=== PATIENT | male | born 1955 | race American Indian/Alaskan Native ===

== ENCOUNTER 2017-02-15 11:32 | Emergency (ER) | payer SELFPAY ==
--- NOTE | 2017-02-15 12:18 | C.PDOC ---
History Of Present Illness 61 yr old male presents to the ER stating 3 weeks ago he fell off a ladder, landing on his butt and hit the back of his head, since then he has had intermittent headache but has been worse for the past few days. While in the ER , patient continue to have high blood pressure. Patient denies fever, chills, chest pain, SOB, nausea, vomiting, weakness or numbness. - HPI Time Seen by Provider: 02/15/17 11:57 Chief Complaint (Nursing): Trauma History Per: Patient History/Exam Limitations: no limitations Onset/Duration Of Symptoms: Days Past Medical History Reviewed: Historical Data, Nursing Documentation, Vital Signs Vital Signs: Last Vital Signs Temp 99 F 02/15/17 14:15 Pulse 85 02/15/17 14:15 Resp 20 02/15/17 14:15 BP 162/99 H 02/15/17 14:25 Pulse Ox 100 02/15/17 14:52 Surgical History: Hernia Repair Family History: States: No Known Family Hx - Social History Hx Alcohol Use: No Hx Substance Use: Yes (marijuana) - Immunization History Hx Tetanus Toxoid Vaccination: No Hx Influenza Vaccination: No Hx Pneumococcal Vaccination: No Review Of Systems Except As Marked, All Systems Reviewed And Found Negative. Constitutional: Negative for: Fever, Chills Eyes: Positive for: Vision Change (Gradual vision slip box changer the last few years. 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 Negative for: Weakness, Numbness Physical Exam - Physical Exam Appears: Non-toxic, No Acute Distress Skin: Warm, Dry, No Rash Head: Atraumatic, Normacephalic Eye(s): bilateral: Normal Inspection, PERRL, EOMI Oral Mucosa: Moist Neck: Normal, Normal ROM, No Paracervical Tenderness, Supple Chest: Symmetrical, No Tenderness Cardiovascular: Rhythm Regular, No Friction Rub, No Murmur Respiratory: Normal Breath Sounds, No Rales, No Rhonchi, No Stridor, No Wheezing Gastrointestinal/Abdominal: Normal Exam, Soft, No Tenderness Back: Normal Inspection, No CVA Tenderness Extremity: Normal ROM, No Calf Tenderness, No Swelling Neurological/Psych: Oriented x3, Normal Speech, Normal Motor Gait: Steady ED Course And Treatment - Laboratory Results Result Diagrams: 02/15/17 12:40 02/15/17 12:40 O2 Sat by Pulse Oximetry: 100 (RA) Pulse Ox Interpretation: Normal - CT Scan/US CT - Head Other Rad Studies (CT/US): Read By Radiologist, Radiology Report Reviewed CT/US Interpretation: PROCEDURE: CT HEAD WITHOUT CONTRAST. HISTORY: headache , injury, high BP. COMPARISON: None available. TECHNIQUE: Axial computed tomography images were obtained through the head/brain without intravenous contrast. Radiation dose: Total exam DLP = 1222.19 mGy-cm. This CT exam was performed using one or more of the following dose reduction techniques: Automated exposure control, adjustment of the mA and/or kV according to patient size, and/or use of iterative reconstruction technique. FINDINGS: HEMORRHAGE: No acute parenchymal, subarachnoid or extra-axial hemorrhage. BRAIN: Fairly significant diffuse/confluent chronic white matter ischemic changes. There appears to be some extension of these ischemic changes into white matter tracts of both basal ganglia. Several small chronic appearing lacunar type infarcts scattered about the deep and subcortical white matter and basal nuclei bilaterally. VENTRICLES: No obstructive hydrocephalus. CALVARIUM: Calvarium intact. PARANASAL SINUSES: Unremarkable as visualized. No significant inflammatory changes. MASTOID AIR CELLS: Unremarkable as visualized. No inflammatory changes. OTHER FINDINGS: Findings consistent with bilateral exophthalmos. Clinical correlation with ophthalmologic examination recommended. IMPRESSION: No acute intracranial hemorrhage. Significant diffuse/ confluent chronic white matter ischemic changes with multiple lacunar type infarcts scattered about the deep and subcortical white matter and basal nuclei bilaterally. Findings consistent with bilateral exophthalmos. Recommend correlation with ophthalmologic examination. Against Medical Advice - AMA Patient Left Against Medical Advice: The patient declines admission to the hospital and wishes to leave the Emergency Department. This action is against my medical advice. This decision was made with informed refusal. The patient was told that admission to the hospital is necessary. Explanation of the reasons why were discussed. The risks of leaving were explained to the patient and include, but are not limited to, worsening of known or currently unknown conditions, permanent disability and from undiagnosed or untreated conditions. The patient has the capacity to make this informed decision and understands my explanation of the current medical problem and risks of leaving. The patient voluntarily accepts these risks and signed an AMA form documenting our conversation. The patient was given the opportunity to ask questions and reconsider. The patient was encouraged to return to the Emergency Department at any time for further care. Medical Decision Making Medical Decision Making: PLAN: * CT - Head * CBC * CMP * Benadryl IVP * Reglan IV * Sodium Chloride IV The patient was strongly advised multiple times the need for admission into the hospital for acute renal failure and hypertension urgency. Patient refuses admission and requests to be discharged home. On re-exam, the patient is resting comfortably and reports improvement of symptoms. Lungs are CTA, heart is RRR, abdomen is soft, non-tender and patient is toleraing PO well. Ambulatory in the ED with steady gait. Follow up with the medical doctor within 1-2 days, return if worsened. Disposition - Disposition Referrals: Marjorie Mclain MD [Staff Provider] - Hao Beavers MD [Staff Provider] - [facility] [Outside] Disposition: AGAINST MEDICAL ADVICE Disposition Time: 14:49 Condition: GOOD Additional Instructions: Follow up with the medical doctor within 1-2 days without fail , return if worsened. Prescriptions: Metoprolol Tartrate [Lopressor] 25 mg PO DAILY #30 tab Tamsulosin HCl [Flomax] 0.4 mg PO DAILY #30 cap.er.24h Instructions: Acute Kidney Injury (DC), Acute Headache (ED) Forms: [employer] (Kittitian) - Clinical Impression Clinical Impression: Acute kidney injury, Headache, Hypertension - PA / SIGHT EFFECTS SPECIALIST / Resident Statement MD/DO has reviewed & agrees with the documentation as recorded. - Scribe Statement The provider has reviewed the documentation as recorded by the Scribe Lucila Rubin All medical record entries made by the Scribe were at my direction and personally dictated by me. I have reviewed the chart and agree that the record accurately reflects my personal performance of the history, physical exam, medical decision making, and the department course for this patient. I have also personally directed, reviewed, and agree with the discharge instructions and disposition.
[2017-02-15 12:19] VITALS: O2SAT 100
[2017-02-15] MEDS ORDERED: Sodium Chloride 0.9% 500 ML IV ONE ×2 (12:20→12:43)
[2017-02-15] MEDS ORDERED: DiphenhydrAMINE 50 mg/ml Inj IVP STA (12:20)
[2017-02-15] MEDS ORDERED: DiphenhydrAMINE 50 mg/ml Inj ONE (12:43)
[2017-02-15 12:49] LABS: BASO # 0.1 K/uL (0.0-0.2); EOS # 0.1 K/uL (0.0-0.7); EOS % 1.2 % (0.0-4.0); HEMATOCRIT 30.2 % (35.0-51.0); LYMPH # 2.4 K/uL (1.0-4.3); LYMPH % 29.6 % (20.0-40.0); MEAN CELL VOLUME 99.5 fL (80.0-94.0); MEAN CORPUSCULAR HEMOGLOBIN 34.1 pg (27.0-31.0); MEAN CORPUSCULAR HGB CONC 34.2 g/dL (33.0-37.0); MEAN PLATELET VOLUME 8.2 fL (7.2-11.7); MONO # 0.8 K/uL (0.0-0.8); MONO % 9.3 % (0.0-10.0); NRBC % 0.1 % (0.0-2.0); RED CELL DISTRIBUTION WIDTH 14.7 % (11.5-14.5); WHITE BLOOD COUNT 8.3 K/uL (4.8-10.8)
[2017-02-15 13:00] LABS: BILIRUBIN,TOTAL 1.1 mg/dL (0.2-1.3); CALCIUM 8.3 mg/dl (8.6-10.4); POTASSIUM 4.8 mmol/L (3.6-5.2); TOTAL PROTEIN 7.6 g/dL (6.3-8.3)
[2017-02-15 13:02] LABS: ALB/GLOB RATIO 1.5 (1.0-2.1)
--- NOTE | 2017-02-15 13:58 | CT ---
PROCEDURE: CT HEAD WITHOUT CONTRAST. HISTORY: headache, injury, high BP COMPARISON: None available. TECHNIQUE: Axial computed tomography images were obtained through the head/brain without intravenous contrast. Radiation dose: Total exam DLP = 1222.19 mGy-cm. This CT exam was performed using one or more of the following dose reduction techniques: Automated exposure control, adjustment of the mA and/or kV according to patient size, and/or use of iterative reconstruction technique. FINDINGS: HEMORRHAGE: No acute parenchymal, subarachnoid or extra-axial hemorrhage. BRAIN: Fairly significant diffuse/confluent chronic white matter ischemic changes. There appears to be some extension of these ischemic changes into white matter tracts of both basal ganglia. Several small chronic appearing lacunar type infarcts scattered about the deep and subcortical white matter and basal nuclei bilaterally. VENTRICLES: No obstructive hydrocephalus. CALVARIUM: Calvarium intact. PARANASAL SINUSES: Unremarkable as visualized. No significant inflammatory changes. MASTOID AIR CELLS: Unremarkable as visualized. No inflammatory changes. OTHER FINDINGS: Findings consistent with bilateral exophthalmos. Clinical correlation with ophthalmologic examination recommended IMPRESSION: No acute intracranial hemorrhage. Significant diffuse/ confluent chronic white matter ischemic changes with multiple lacunar type infarcts scattered about the deep and subcortical white matter and basal nuclei bilaterally. Findings consistent with bilateral exophthalmos. Recommend correlation with ophthalmologic examination.
[2017-02-15 14:15] VITALS: BP 162/99; PULSE 85; RESP 20; TEMP 99
== END 2017-02-15 15:10 | disposition left against medical advice (07) ==
LOC: C.ER 11:32
DX: I10 Essential (primary) hypertension (principal); R51 Headache; N17.9 Acute kidney failure, unspecified
CPT/HCPCS: 70450; 80053; 85025; 96374; 99285; J1200; J2765; J7040

== ENCOUNTER 2017-09-16 09:43 | Inpatient (IN) | payer MEDICAID ==
[2017-09-16 09:49] VITALS: BMI 24.3
--- NOTE | 2017-09-16 10:22 | C.PDOC ---
History Of Present Illness 62 y/o male presents to ED for complaints of bilateral leg edema and elevated blood pressure that began 3 days ago. Patient states he has been noncompliant with his blood pressure medication for 3 months ago and restarted them last week. Denies headache pain, fever, or chest pain. Patient also reports difivulty urinating that began 7 years ago but states he did not go to a urologist because he is afraid. Chief Complaint (Nursing): High Blood Pressure History Per: Patient History/Exam Limitations: no limitations Onset/Duration Of Symptoms: Days (3) Current Symptoms Are (Timing): Still Present Associated Symptoms: denies: Chest Pain, Dizziness, Blurred Vision, Headache Exacerbating Factor(s): Pos: Recently Missed Doses Of Medication Recent travel outside of the [place]: No Past Medical History Reviewed: Historical Data, Nursing Documentation, Vital Signs Vital Signs: Last Vital Signs Temp 98.3 F 09/16/17 09:48 Pulse 64 09/16/17 11:38 Resp 21 09/16/17 11:38 BP 147/98 H 09/16/17 11:38 Pulse Ox 99 09/16/17 11:58 - Medical History PMH: HTN Surgical History: Hernia Repair Family History: States: Unknown Family Hx - Social History Hx Alcohol Use: No Hx Substance Use: Yes (marijuana) - Immunization History Hx Tetanus Toxoid Vaccination: No Hx Influenza Vaccination: No Hx Pneumococcal Vaccination: No Review Of Systems Constitutional: Positive for: Other (Elevated blood pressure ). Negative for: Fever, Chills Cardiovascular: Negative for: Chest Pain Respiratory: Negative for: Shortness of Breath Gastrointestinal: Negative for: Nausea, Vomiting, Abdominal Pain, Diarrhea Musculoskeletal: Positive for: Other (Leg Edema ) Skin: Negative for: Rash Neurological: Negative for: Weakness, Numbness, Headache Physical Exam - Physical Exam Appears: Non-toxic Skin: Warm, Dry, No Rash Head: Atraumatic, Normacephalic Eye(s): bilateral: Normal Inspection, PERRL, EOMI Nose: Normal, No Discharge Oral Mucosa: Moist Neck: Supple Chest: Symmetrical, No Deformity, No Tenderness Cardiovascular: Rhythm Regular, No Murmur, JVD Respiratory: Normal Breath Sounds, No Decreased Breath Sounds, Rales (Mild), No Rhonchi, No Wheezing Gastrointestinal/Abdominal: Soft, No Tenderness, Distention (Suprapubic area ) Extremity: Normal ROM, Pedal Edema (1/4), No Deformity Neurological/Psych: Oriented x3 (Awake and alert ), Normal Speech Gait: Steady ED Course And Treatment - Laboratory Results Result Diagrams: 09/16/17 10:24 09/16/17 10:24 Lab Interpretation: Abnormal (mitchell cath 2100 cc, creat elev, macrocytic anemia HGB 10.3, BNP/Trop neg.) ECG: Interpreted By Me ECG Rhythm: Sinus Rhythm ECG Interpretation: Normal Rate From EC O2 Sat by Pulse Oximetry: 99 (RA) Pulse Ox Interpretation: Normal - Radiology CXR: Interpreted by Me CXR Interpretation: Yes: No Acute Disease, Other (mild CHF) - Other Rad CXR X-Ray: Viewed By Me, Read By Radiologist Interpretation: IMPRESSION: No active disease. Progress Note: bladder scan ">1000cc". mitchell for 2100 cc. lasix 20 IV given Reevaluation Time: 11:53 Reassessment Condition: Improved - Physician Consult Information Outcome Of Conversation: 1150: d/w Dr. Mueller, Medicine Hand Sign Writer- ok to admit. Medical Decision Making Medical Decision Making: Administered Lasix. Ordered CXR, EKG, bladder scan and urinalysis. Bladder Scan: - Over a thousand Overflow Incontinence: h/o mitchell placement and lost to Urology f/u. no h/o prostate CA mitchell for 2100 cc Start Flomax and Urology eval r/u prostate CA Renal insuff; creat 2.1 is IMPROVED from prior 2.6 ? if partially due to post-renal obstruction follow creat now that mitchell placed. Anemia: HGB 10 Macrocytic no h/o GIB, not microcytic nor widened RDW to suggest mixed picture. ? related to strict Vegan/Yarsani diet consider thiamine/folate/B12 def. Heme/Onc eval Uncontrolled BP poor BP med compliance Continue Norvasc 10 PO QD and Metoprolol 50 PO BID Adjust PRN Fluid overload: JVD, +S3, leg edema, uncontrolled HTN c/w CHF BP and legs improved with lasix IV Cardiac eval/echo Disposition Doctor Will See Patient In The: Hospital Counseled Patient/Family Regarding: Studies Performed, Diagnosis - Disposition Disposition: HOSPITALIZED Disposition Time: 11:58 Condition: GOOD Forms: [employer] (Yoruba) - Clinical Impression Clinical Impression: Urinary retention, Mitchell catheter in place, Hypertension, Abnormal blood pressure, Anemia - Scribe Statement The provider has reviewed the documentation as recorded by the Stephanie Guerin All medical record entries made by the Nestoribe were at my direction and personally dictated by me. I have reviewed the chart and agree that the record accurately reflects my personal performance of the history, physical exam, medical decision making, and the department course for this patient. I have also personally directed, reviewed, and agree with the discharge instructions and disposition.
[2017-09-16 10:31] LABS: BASO # 0.1 K/uL (0.0-0.2); EOS # 0.1 K/uL (0.0-0.7); EOS % 2.4 % (0.0-4.0); HEMOGLOBIN 10.3 g/dL (12.0-18.0); LYMPH # 1.7 K/uL (1.0-4.3); LYMPH % 32.8 % (20.0-40.0); MEAN CELL VOLUME 98.7 fL (80.0-94.0); MEAN CORPUSCULAR HEMOGLOBIN 34.1 pg (27.0-31.0); MEAN CORPUSCULAR HGB CONC 34.6 g/dL (33.0-37.0); MEAN PLATELET VOLUME 7.8 fL (7.2-11.7); MONO # 0.4 K/uL (0.0-0.8); NEUT % 55.8 % (50.0-75.0); RBC 3.01 Mil/uL (4.40-5.90); RED CELL DISTRIBUTION WIDTH 14.2 % (11.5-14.5); WHITE BLOOD COUNT 5.3 K/uL (4.8-10.8)
--- NOTE | 2017-09-16 10:40 | RAD ---
PROCEDURE: CHEST RADIOGRAPH, 1 VIEW HISTORY: SOB COMPARISON: None available. FINDINGS: LUNGS: Clear. PLEURA: No pneumothorax or pleural fluid seen. CARDIOVASCULAR: No radiographic findings to suggest acute or significant cardiovascular disease. OSSEOUS STRUCTURES: No significant abnormalities. VISUALIZED UPPER ABDOMEN: Normal. OTHER FINDINGS: None. IMPRESSION: No active disease.
[2017-09-16 11:06] LABS: ALB/GLOB RATIO 1.5 (1.0-2.1); ALBUMIN 4.3 g/dL (3.5-5.0); ALT/SGPT 33 U/L (21-72); AST/SGOT 34 U/L (17-59); BLOOD UREA NITROGEN 17 mg/dL (9-20); CALCIUM 8.3 mg/dl (8.6-10.4); GFR AFRICAN-AMERICAN 39; GFR NON-AFRICAN AMERICAN 32
[2017-09-16 11:06] LABS: URINE BILIRUBIN NEGATIVE (NEGATIVE); URINE BLOOD NEGATIVE (NEGATIVE); URINE CLARITY Clear (Clear); URINE COLOR Straw (YELLOW); URINE GLUCOSE (UA) NORMAL (Normal); URINE LEUKOCYTE ESTERASE NEG Leu/uL (Negative); URINE PROTEIN NEGATIVE (NEGATIVE); URINE UROBILINOGEN NORMAL mg/dL (0.2-1.0)
[2017-09-16 11:15] LABS: B-TYPE NATRIURETIC PEPTIDE 303 pg/mL (0-900)
[2017-09-16 16:02] VITALS: RESP 20
[2017-09-16 20:49] LABS: CK-MB 1.67 ng/mL (0.0-3.38)
[2017-09-16 21:18] LABS: TROPONIN I 0.012 ng/mL (0.00-0.120)
[2017-09-16 21:22] LABS: BARBITURATES, UR NEGATIVE (NEGATIVE); BENZODIAZEPINES, UR NEGATIVE (NEGATIVE); OPIATES, UR NEGATIVE (NEGATIVE); PHENCYCLIDINE, UR NEGATIVE (NEGATIVE)
--- NOTE | 2017-09-16 23:14 | CP.PCM.HP ---
History of Present Illness - History of Present Illness History of Present Illness: CC: high blood pressure HPI: 62 y/o male presents to ED for complaints of bilateral leg edema and elevated blood pressure that began 3 days ago. Patient states he has been noncompliant with his blood pressure medication for 3 months ago and restarted them last week. Denies headache pain, fever, or chest pain. Patient also reports difivulty urinating that began 7 years ago but states he did not go to a urologist because he is afraid. Past Patient History - Infectious Disease Hx of Infectious Diseases: None - Past Medical History & Family History Past Medical History?: Yes - Past Social History Smoking Status: marijuana - CARDIAC Hx Hypertension: Yes - MUSCULOSKELETAL/RHEUMATOLOGICAL Hx Falls: No - GENITOURINARY/GYNECOLOGICAL Hx Genitourinary Disorders: Yes Hx Prostate Problems: Yes - PSYCHIATRIC Hx Substance Use: Yes (smokes marijuana) - SURGICAL HISTORY Hx Surgeries: Yes Hx Herniorrhaphy: Yes Other/Comment: bilateral hernia repair - ANESTHESIA Hx Anesthesia: Yes Hx Anesthesia Reactions: No Hx Malignant Hyperthermia: No Meds Allergies/Adverse Reactions: Allergies Allergy/AdvReac Type Severity Reaction Status Date / Time No Known Allergies Allergy Verified 09/16/17 09:48 Results - Vital Signs Recent Vital Signs: Last Vital Signs Temp 98.3 F 09/16/17 15:03 Pulse 75 09/16/17 20:00 Resp 20 09/16/17 15:03 BP 155/97 H 09/16/17 17:40 Pulse Ox 100 09/16/17 15:03 - Labs Result Diagrams: 09/16/17 10:24 09/16/17 10:24 Labs: Laboratory Results - last 24 hr 09/16/17 09/16/17 09/16/17 10:24 10:24 10:55 WBC 5.3 RBC 3.01 L Hgb 10.3 L Hct 29.7 L MCV 98.7 H MCH 34.1 H MCHC 34.6 RDW 14.2 Plt Count 180 MPV 7.8 Neut % (Auto) 55.8 Lymph % (Auto) 32.8 [place] % (Auto) 8.0 Eos % (Auto) 2.4 Baso % (Auto) 1.0 Neut # (Auto) 3.0 Lymph # (Auto) 1.7 [place] # (Auto) 0.4 Eos # (Auto) 0.1 Baso # (Auto) 0.1 Sodium 144 Potassium 4.0 Chloride 108 H Carbon Dioxide 23 Anion Gap 18 BUN 17 Creatinine 2.1 H Est GFR ( Amer) 39 Est GFR (Non-Af Amer) 32 Random Glucose 82 Calcium 8.3 L Total Bilirubin 0.7 AST 34 ALT 33 Alkaline Phosphatase 87 Total Creatine Kinase CK-MB (Mass) Troponin I < 0.0120 NT-Pro-B Natriuret Pep 303 Total Protein 7.3 Albumin 4.3 Globulin 3.0 Albumin/Globulin Ratio 1.5 TSH 3rd Generation Urine Color Straw Urine Clarity Clear Urine pH 6.0 Ur Specific [place] 1.005 Urine Protein Negative Urine Glucose (UA) Normal Urine Ketones Negative Urine Blood Negative Urine Nitrate Negative Urine Bilirubin Negative Urine Urobilinogen Normal Ur Leukocyte Esterase Neg Urine WBC (Auto) < 1 Urine RBC (Auto) 1 Urine Opiates Screen Urine Methadone Screen Ur Barbiturates Screen Ur Phencyclidine Scrn Ur Amphetamines Screen U Benzodiazepines Scrn U Oth Cocaine Metabols U Cannabinoids Screen 09/16/17 09/16/17 20:13 20:49 WBC RBC Hgb Hct MCV MCH MCHC RDW Plt Count MPV Neut % (Auto) Lymph % (Auto) [place] % (Auto) Eos % (Auto) Baso % (Auto) Neut # (Auto) Lymph # (Auto) [place] # (Auto) Eos # (Auto) Baso # (Auto) Sodium Potassium Chloride Carbon Dioxide Anion Gap BUN Creatinine Est GFR ( Amer) Est GFR (Non-Af Amer) Random Glucose Calcium Total Bilirubin AST ALT Alkaline Phosphatase Total Creatine Kinase 367 H CK-MB (Mass) 1.67 Troponin I 0.0120 NT-Pro-B Natriuret Pep Total Protein Albumin Globulin Albumin/Globulin Ratio TSH 3rd Generation 4.17 Urine Color Urine Clarity Urine pH Ur Specific [place] Urine Protein Urine Glucose (UA) Urine Ketones Urine Blood Urine Nitrate Urine Bilirubin Urine Urobilinogen Ur Leukocyte Esterase Urine WBC (Auto) Urine RBC (Auto) Urine Opiates Screen Negative Urine Methadone Screen Negative Ur Barbiturates Screen Negative Ur Phencyclidine Scrn Negative Ur Amphetamines Screen Negative U Benzodiazepines Scrn Negative U Oth Cocaine Metabols Negative U Cannabinoids Screen Positive H
[2017-09-17 02:07] LABS: CK-MB 1.06 ng/mL (0.0-3.38)
[2017-09-17 07:23] LABS: CALCIUM 8.8 mg/dl (8.6-10.4)
--- NOTE | 2017-09-17 10:44 | PCM.URO ---
Urology Progress Note - Subjective Hematuria: Yes - Objective Lab Results Last 24 Hours: Laboratory Results - last 24 hr 09/16/17 09/16/17 09/16/17 10:24 10:55 20:13 Sodium 144 Potassium 4.0 Chloride 108 H Carbon Dioxide 23 Anion Gap 18 BUN 17 Creatinine 2.1 H Est GFR ( Amer) 39 Est GFR (Non-Af Amer) 32 Random Glucose 82 Calcium 8.3 L Total Bilirubin 0.7 AST 34 ALT 33 Alkaline Phosphatase 87 Total Creatine Kinase 367 H CK-MB (Mass) 1.67 Troponin I < 0.0120 0.0120 NT-Pro-B Natriuret Pep 303 Total Protein 7.3 Albumin 4.3 Globulin 3.0 Albumin/Globulin Ratio 1.5 Prostate Specific Ag TSH 3rd Generation 4.17 Urine Color Straw Urine Clarity Clear Urine pH 6.0 Ur Specific [place] 1.005 Urine Protein Negative Urine Glucose (UA) Normal Urine Ketones Negative Urine Blood Negative Urine Nitrate Negative Urine Bilirubin Negative Urine Urobilinogen Normal Ur Leukocyte Esterase Neg Urine WBC (Auto) < 1 Urine RBC (Auto) 1 Urine Opiates Screen Urine Methadone Screen Ur Barbiturates Screen Ur Phencyclidine Scrn Ur Amphetamines Screen U Benzodiazepines Scrn U Oth Cocaine Metabols U Cannabinoids Screen 09/16/17 09/17/17 09/17/17 20:49 01:29 07:04 Sodium 142 Potassium 4.0 Chloride 104 Carbon Dioxide 23 Anion Gap 19 BUN 16 Creatinine 2.0 H Est GFR ( Amer) 41 Est GFR (Non-Af Amer) 34 Random Glucose 139 H Calcium 8.8 Total Bilirubin AST ALT Alkaline Phosphatase Total Creatine Kinase 328 H CK-MB (Mass) 1.06 Troponin I < 0.0120 NT-Pro-B Natriuret Pep Total Protein Albumin Globulin Albumin/Globulin Ratio Prostate Specific Ag 16.9 H TSH 3rd Generation Urine Color Urine Clarity Urine pH Ur Specific [place] Urine Protein Urine Glucose (UA) Urine Ketones Urine Blood Urine Nitrate Urine Bilirubin Urine Urobilinogen Ur Leukocyte Esterase Urine WBC (Auto) Urine RBC (Auto) Urine Opiates Screen Negative Urine Methadone Screen Negative Ur Barbiturates Screen Negative Ur Phencyclidine Scrn Negative Ur Amphetamines Screen Negative U Benzodiazepines Scrn Negative U Oth Cocaine Metabols Negative U Cannabinoids Screen Positive H Intake & Output: Intake & Output 09/16/17 09/17/17 09/17/17 18:59 06:59 18:59 Intake Total 750 Output Total 3800 3400 Balance -3800 -2650 Weight 160 lb Intake: Oral 750 Output: Urine 3800 3400 Urethral ([place]) 2000 3400 Other: Voiding Method Indwelling Catheter Vital Signs: Vital Signs - 24 hr 09/16/17 09/16/17 09/16/17 11:02 11:06 11:07 Temperature Pulse Rate 68 69 68 Respiratory 17 13 20 Rate Blood Pressure 158/91 H 162/100 H 158/105 H O2 Sat by Pulse 99 99 99 Oximetry 09/16/17 09/16/17 09/16/17 11:38 12:02 13:38 Temperature 98.3 F Pulse Rate 64 62 Respiratory 21 18 Rate Blood Pressure 147/98 H 152/95 H O2 Sat by Pulse 100 99 98 Oximetry 09/16/17 09/16/17 09/16/17 15:03 16:00 17:40 Temperature 98.3 F Pulse Rate 72 68 73 Respiratory 20 Rate Blood Pressure 148/95 H 155/97 H O2 Sat by Pulse 100 Oximetry 09/16/17 09/16/17 09/16/17 20:00 23:50 23:53 Temperature 97.9 F Pulse Rate 75 66 73 Respiratory 20 Rate Blood Pressure 132/85 O2 Sat by Pulse 97 Oximetry 09/17/17 09/17/17 09/17/17 04:10 05:02 07:05 Temperature 98 F Pulse Rate 82 77 84 Respiratory 20 Rate Blood Pressure 103/65 O2 Sat by Pulse Oximetry 09/17/17 07:30 Temperature 98.2 F Pulse Rate 83 Respiratory 20 Rate Blood Pressure 149/98 H O2 Sat by Pulse 99 Oximetry - Plan Intake & Output: No
[2017-09-17 15:43] VITALS: BP 145/105; TEMP 98.5; O2SAT 100
[2017-09-17] MEDS ORDERED: Nitroglycerin 2% Ointment Foilpak UD TOP STA (16:09)
[2017-09-17 19:31] VITALS: PULSE 86
--- NOTE | 2017-09-17 22:33 | CARD ---
APPROVED REPORT EKG Measurement Heart [id number] <Conclusion> Normal sinus rhythm Voltage criteria for left ventricular hypertrophy Nonspecific T wave abnormality Abnormal ECG
[2017-09-18] MEDS ORDERED: Pneumococcal 23-Valent Vaccine IM ONE (10:00)
== END 2017-09-17 17:24 | disposition left against medical advice (07) | DRG 127 ==
LOC: C.ER 09:43 → C.9E 11:49 → C.6T 14:11
PROVIDERS: ADMIT Internal Medicine; ATTEND Internal Medicine
DX: I11.0 Hypertensive heart disease with heart failure (principal); D64.9 Anemia, unspecified; I50.9 Heart failure, unspecified; N39.490 Overflow incontinence; Z91.14 Patient's other noncompliance with medication regimen; F12.10 Cannabis abuse, uncomplicated

== ENCOUNTER 2018-04-23 08:06 | Emergency (ER) | payer MEDICAID ==
[2018-04-23 08:06] VITALS: BMI 24.3
[2018-04-23 08:15] VITALS: O2SAT 100
--- NOTE | 2018-04-23 08:49 | C.PDOC ---
History Of Present Illness 63 y/o male, with history of previous stroke and hypertension, comes in to ED for evaluation. Patient reports he had outpatient US done which showed hydronephrosis and kidney stones. Patient has seen a svp monetization and was advised to come here to the ER. Patient denies fever, vomiting, or complaints of pain. Time Seen by Provider: 04/23/18 08:19 Chief Complaint (Nursing): Medical Clearance History Per: Patient History/Exam Limitations: no limitations Onset/Duration Of Symptoms: Days Current Symptoms Are (Timing): Still Present Past Medical History Reviewed: Historical Data, Nursing Documentation, Vital Signs Vital Signs: Last Vital Signs Temp 98.3 F 04/23/18 08:09 Pulse 106 H 04/23/18 08:09 Resp 20 04/23/18 08:09 BP 164/94 H 04/23/18 08:09 Pulse Ox 100 04/23/18 08:09 - Medical History PMH: HTN Surgical History: Hernia Repair Family History: States: No Known Family Hx - Social History Hx Alcohol Use: No Hx Substance Use: Yes (smokes marijuana) - Immunization History Hx Tetanus Toxoid Vaccination: No Hx Influenza Vaccination: No Hx Pneumococcal Vaccination: No Review Of Systems Except As Marked, All Systems Reviewed And Found Negative. Constitutional: Negative for: Fever, Chills Cardiovascular: Negative for: Chest Pain Respiratory: Negative for: Shortness of Breath Gastrointestinal: Negative for: Vomiting, Abdominal Pain, Diarrhea Physical Exam - Physical Exam Appears: Non-toxic, No Acute Distress Skin: Warm, Dry Head: Atraumatic, Normacephalic Eye(s): bilateral: Normal Inspection Oral Mucosa: Moist Neck: Supple Chest: Symmetrical Cardiovascular: Rhythm Regular, No Murmur Respiratory: Normal Breath Sounds, No Rales, No Rhonchi, No Wheezing Gastrointestinal/Abdominal: Soft, No Tenderness Extremity: Bilateral: Atraumatic, Normal Color And Temperature, Normal ROM Neurological/Psych: Oriented x3, Normal Speech ED Course And Treatment - Laboratory Results Result Diagrams: 04/23/18 09:21 04/23/18 09:21 O2 Sat by Pulse Oximetry: 100 (RA) Pulse Ox Interpretation: Normal - CT Scan/US Abd/Pel CT Other Rad Studies (CT/US): Read By Radiologist, Radiology Report Reviewed CT/US Interpretation: FINDINGS: There is limited evaluation of the solid organs without the administration of IV contrast. LOWER THORAX: No visible conso lidation, pleural effusion, or pneumothorax. LIVER: Unremarkable unenhanced appearance. GALLBLADDER AND BILE DUCTS: Unremarkable unenhanced appearance. PANCREAS: Unremarkable unenhanced appearance. SPLEEN: Unremarkable unenhanced appearance. ADRENALS: Unremarkable unenhanced appearance. KIDNEYS AND URETERS: Three year bilateral hydronephrosis. No obstructing calculus definitively identified. Pelvic calcifications on the left presumed to represent phleboliths. BLADDER: Markedly distended thick-walled lobulated urinary bladder. Anterior left urinary bladder diverticulum. REPRODUCTIVE: Heterogeneous enlarged prostate gland measures approximately 6.4 x 6.2 x 7.1 cm (AP by transverse by CC dimensions). APPENDIX: The appendix appears within normal limits of caliber. No secondary signs of acute appendicitis. BOWEL: The stomach is nondistended. Lack of oral contrast limits evaluation for bowel pathology. The bowel loops appear within normal limits of caliber without javier dence of intestinal obstruction. PERITONEUM: No significant free fluid. No definite free air. LYMPH NODES: No bulky lymphadenopathy identified. VASCULATURE: Atherosclerotic calcifications. No aortic aneurysm. BONES: Multilevel degenerative changes of the spine. Intervertebral disc space narr owing. OTHER FINDINGS: 16 mm fat containing umbilical hernia. IMPRESSION: Severe bilateral hydronephrosis. Markedly distended irregularly thick walled urinary bladder. Anterior left urinary bladder diverticulum. Recommend correlation with urinalysis and/or cystoscopy if indicated. Severely enlarged heterogeneous prostate gland. Recommend correlation with PSA. Fat containing umbilical hernia. Additional findings as above. Against Medical Advice - AMA Patient Left Against Medical Advice: The patient declines admission to the hospital and wishes to leave the Emergency Department. This action is against my medical advice. This decision was made with informed refusal. The patient was told that admission to the hospital is necessary. Explanation of the reasons why were discussed. The risks of leaving were explained to the patient and include, but are not limited to, worsening of known or currently unknown conditions, permanent disability and from undiagnosed or untreated conditions. The patient has the capacity to make this informed decision and understands my explanation of the current medical problem and risks of leaving. The patient voluntarily accepts these risks and signed an AMA form documenting our conversation. The patient was given the opportunity to ask questions and reconsider. The patient was encouraged to return to the Emergency Department at any time for further care. 1152 On reassessment, patient refuses admission and is electing to leave AMA. Medical Decision Making Medical Decision Making: renal failure, ro obstructive uropathy Plan: --Abd/Pel CT --Labs --UA in er, pt iniatlly refused [facility]. ct and bladder scan shows large bladder. now agrees to [facility] with 1000cc outpt. accepted by dr mueller 1152 after admission, pt later states he declines admission. advise of risks of worsening kidney function. pt understands signs ama Dr. Mueller paged to inform of pt's decision to leave AMA Disposition - Disposition Referrals: Hao Beavers MD [Staff Provider] - Rossy Beavers MD [Staff Provider] - Disposition: AGAINST MEDICAL ADVICE Disposition Time: 11:54 Condition: UNKNOWN Additional Instructions: return to er with worsening. Prescriptions: RX: Cefpodoxime [Vantin] 100 mg PO BID #14 tab Instructions: Kidney Failure, Leaving Against Medical Advice, Urinary Retention Forms: [employer] (Kazakh) - Clinical Impression Clinical Impression: Urinary retention, Left against medical advice - Scribe Statement The provider has reviewed the documentation as recorded by the Nestoribmala Ferrell Provider Attestation: All medical record entries made by the Scribe were at my direction and personally dictated by me. I have reviewed the chart and agree that the record accurately reflects my personal performance of the history, physical exam, medical decision making, and the department course for this patient. I have also personally directed, reviewed, and agree with the discharge instructions and disposition.
[2018-04-23 09:26] LABS: BASO # 0.1 K/uL (0.0-0.2); BASO % 1.4 % (0.0-2.0); EOS # 0.1 K/uL (0.0-0.7); EOS % 1.5 % (0.0-4.0); HEMOGLOBIN 9.9 g/dL (12.0-18.0); LYMPH # 2.1 K/uL (1.0-4.3); LYMPH % 29.2 % (20.0-40.0); MEAN CORPUSCULAR HEMOGLOBIN 29.7 pg (27.0-31.0); MEAN CORPUSCULAR HGB CONC 32.4 g/dL (33.0-37.0); MONO # 1.1 K/uL (0.0-0.8); MONO % 15.9 % (0.0-10.0); NEUT # 3.8 K/uL (1.8-7.0); RBC 3.34 Mil/uL (4.40-5.90); RED CELL DISTRIBUTION WIDTH 16.5 % (11.5-14.5); WHITE BLOOD COUNT 7.2 K/uL (4.8-10.8)
[2018-04-23 09:27] LABS: MEAN CELL VOLUME 91.7 fL (80.0-94.0)
[2018-04-23 09:34] LABS: INR 1.2; PROTHROMBIN TIME 12.6 SECONDS (9.7-12.2)
[2018-04-23 09:38] LABS: ALB/GLOB RATIO 1.1 (1.0-2.1); ALBUMIN 4.4 g/dL (3.5-5.0)
[2018-04-23 10:51] LABS: URINE BACTERIA OCC (<OCC); URINE BILIRUBIN NEGATIVE (NEGATIVE); URINE BLOOD 1+ (NEGATIVE); URINE CLARITY Hazy (Clear); URINE COLOR Yellow (YELLOW); URINE GLUCOSE (UA) NORMAL (Normal); URINE LEUKOCYTE ESTERASE 3+ Leu/uL (Negative); URINE PROTEIN NEGATIVE (NEGATIVE); URINE UROBILINOGEN NORMAL mg/dL (0.2-1.0)
--- NOTE | 2018-04-23 11:07 | CT ---
PROCEDURE: CT Abdomen and Pelvis without Oral or IV contrast. HISTORY: abd pain COMPARISON: None available. TECHNIQUE: Contiguous axial images of the abdomen and pelvis. No oral or IV contrast administered. Coronal and Sagittal reformats generated and reviewed. Radiation dose: Total exam DLP = 307.33 mGy-cm. This CT exam was performed using one or more of the following dose reduction techniques: Automated exposure control, adjustment of the mA and/or kV according to patient size, and/or use of iterative reconstruction technique. FINDINGS: There is limited evaluation of the solid organs without the administration of IV contrast. LOWER THORAX: No visible consolidation, pleural effusion, or pneumothorax. LIVER: Unremarkable unenhanced appearance. GALLBLADDER AND BILE DUCTS: Unremarkable unenhanced appearance. PANCREAS: Unremarkable unenhanced appearance. SPLEEN: Unremarkable unenhanced appearance. ADRENALS: Unremarkable unenhanced appearance. KIDNEYS AND URETERS: Three year bilateral hydronephrosis. No obstructing calculus definitively identified. Pelvic calcifications on the left presumed to represent phleboliths. BLADDER: Markedly distended thick-walled lobulated urinary bladder. Anterior left urinary bladder diverticulum. REPRODUCTIVE: Heterogeneous enlarged prostate gland measures approximately 6.4 x 6.2 x 7.1 cm (AP by transverse by CC dimensions). APPENDIX: The appendix appears within normal limits of caliber. No secondary signs of acute appendicitis. BOWEL: The stomach is nondistended. Lack of oral contrast limits evaluation for bowel pathology. The bowel loops appear within normal limits of caliber without evidence of intestinal obstruction. PERITONEUM: No significant free fluid. No definite free air. LYMPH NODES: No bulky lymphadenopathy identified. VASCULATURE: Atherosclerotic calcifications. No aortic aneurysm. BONES: Multilevel degenerative changes of the spine. Intervertebral disc space narrowing. OTHER FINDINGS: 16 mm fat containing umbilical hernia. IMPRESSION: Severe bilateral hydronephrosis. Markedly distended irregularly thick walled urinary bladder. Anterior left urinary bladder diverticulum. Recommend correlation with urinalysis and/or cystoscopy if indicated. Severely enlarged heterogeneous prostate gland. Recommend correlation with PSA. Fat containing umbilical hernia. Additional findings as above.
[2018-04-23] MEDS ORDERED: Sodium Chloride 0.9% 500 ML IV ONE ×2 (11:22→11:39)
[2018-04-23 12:10] VITALS: BP 147/83; PULSE 99; RESP 18; TEMP 99.3
== END 2018-04-23 12:15 | disposition left against medical advice (07) ==
LOC: C.ER 08:06 → C.9E 11:22 → UNDOADMIN 11:22 → C.ER 12:11
DX: R33.9 Retention of urine, unspecified (principal); I10 Essential (primary) hypertension
CPT/HCPCS: 51702; 74176; 80053; 81001; 83690; 85025; 85610; 85730; 87086; 87181; 96365; 99285; J0696; J7040

== ENCOUNTER 2018-06-11 09:15 | Outpatient (CLI) | payer OTHER | END 2018-06-11 09:16 | disposition home or self-care (01) | LOC: C.CARD 09:15 ==

== ENCOUNTER 2018-06-26 08:17 | Outpatient (CLI) | payer OTHER | END 2018-06-26 08:18 | disposition home or self-care (01) | LOC: C.CTH 08:17 ==

== ENCOUNTER 2018-06-29 11:45 | Outpatient (CLI) | payer OTHER | END 2018-06-29 11:46 | disposition home or self-care (01) | LOC: C.PAT 11:45 ==

== ENCOUNTER 2018-07-23 12:14 | Day surgery (SDC) | payer OTHER ==
[2018-07-17 14:19] VITALS: BMI 25.0
[2018-07-23 13:25] VITALS: O2SAT 100
[2018-07-23] MEDS ORDERED: HYDROmorphone 0.5 mg/0.5 ml ISec IVP PRN ×2 (13:32→15:30)
[2018-07-23] MEDS ORDERED: cefTRIAXone 1 gm 1 GM/100 ML BAG IVPB ONE (14:55)
[2018-07-23] MEDS ORDERED: Iohexol 240 (50 ml) ONE (14:56)
[2018-07-23] MEDS ORDERED: Lidocaine 2% Jelly (Uro-Jet) ONE (14:56)
[2018-07-23] MEDS ORDERED: Midazolam 2 MG/2 ML VIAL ONE (15:07)
[2018-07-23] MEDS ORDERED: Propofol 10 mg/ml Inj (20 ML) ONE (15:07)
[2018-07-23] MEDS ORDERED: Oxycodone/Acetaminophen 5/325 mg Tab PO PRN (15:28)
[2018-07-23] MEDS ORDERED: Ciprofloxacin 400mg/200ml D5W 400 MG/200 ML BAG IVPB STA (15:33)
[2018-07-23 16:38] VITALS: RESP 18
[2018-07-23 17:18] VITALS: BP 145/80; PULSE 87; TEMP 98
--- NOTE | 2018-07-29 03:19 | HP ---
UROLOGY ADMISSION HISTORY AND PHYSICAL REASON FOR ADMISSION: Workup of urinary retention, hematuria. HISTORY OF PRESENT ILLNESS: Mr. Ayala is a very pleasant gentleman who is 63-year-old. He has voiding dysfunction, urinary retention, failed multiple episodes of voiding trials despite medical therapy. He is coming to me from another urologist. We discussed options, and he wants a TURP (but I explained to the patient that he is here today for a cysto) to assess the size of his prostate to see whether he needs an open prostatectomy or a suprapubic prostatectomy or a GreenLight laser or a TURP. We discussed various options with the patient. Given his overall general social situation, we discussed the risks, benefits, and different options available to him. Plan today is to do a cystoscopy and then we are going to make further plans. I did discuss the possibility for other diagnostic studies, urodynamics, etc, but again we are going to stick with the hospital-based procedure. We are going to do a cysto today, and then either a prostatectomy or a GreenLight laser or an open prostatectomy. Past medical and surgical history are as listed on the chart, really relatively negative. Review of systems as above, no weight loss, chest pain, or shortness of breath. SOCIAL HISTORY: He is , and he is living with some children here. He . MEDICATIONS: See chart. ALLERGIES: SEE CHART. LABORATORY DATA: See chart. PHYSICAL EXAMINATION: GENERAL: A well-nourished male, no apparent distress. VITAL SIGNS: Stable LUNGS: Clear. ABDOMEN: Overall soft and nontender. No flank mass appreciated. RECTAL: The rectal exam reveals a 30 g prostate, soft and smooth. Relatively normal but large for age. DIAGNOSES: Urinary retention, hematuria, voiding dysfunction. The patient is a very pleasant 63-year old gentleman. He currently has an indwelling Costa. We discussed options for voiding trial. We discussed intermittent catheterization. We discussed open prostatectomy. Discussed GreenLight laser. Today, he is here for further assessment. PLAN: 1. Antibiotic prophylaxis. 2. Cystoscopy Further, we will follow depending on what we find clinically. Risks and benefits were discussed at length. We are going to plan to proceed. Eliseo Beavers MD [facility] # [id number]
--- NOTE | 2018-07-29 06:45 | OP ---
PROCEDURE DATE: 07/23/2018 PREOPERATIVE DIAGNOSES: Urinary retention, voiding dysfunction, and hematuria. POSTOPERATIVE DIAGNOSES: Urinary retention, voiding dysfunction, and hematuria. PROCEDURE: Cystoscopy. SURGEON: Hao Beavers MD COMPLICATIONS: There were no complications. BLOOD LOSS: Less than 10 mL. FINDINGS: 1. Normal anterior urethra, no stricture. 2. The verumontanum is about 3 cm. It is a fairly visually occlusive prostate, probably amenable to a TURP. It is moderately visually occlusive, not completely 100% (likely the patient's cause of obstruction), see below. INDICATION: See history and physical for further details. A pleasant gentleman here for the above. He is looking to get a catheter. He has failed multiple voiding trials. He has seen other urologists. He is looking for surgery. After discussing options, risks, benefits, and treatment alternatives with the patient, he is here for the above-listed procedure. to this note, but after today's findings we are not going to be doing urodynamics recommend a GreenLight laser, I think we will be able to get the prostate open wide enough for the patient to be able to void well. DESCRIPTION OF PROCEDURE: After obtaining informed consent, the patient was placed on the table. Routine monitors were placed. Time-out was called to confirm the patient and positioning. The cystoscope introduced via urethra. We used a 22-Ukrainian. We removed the old Costa catheter in a sterile technique. We inspected it carefully with 30 degree and 70 degree lens. No major abnormalities detected. the pictures the bladder neck, it is very close to the orifices. There are no abnormalities. The bladder is moderately trabeculated. No biopsy was taken. The patient tolerated the procedure well without complication. A new Costa catheter was inserted gently and carefully without difficulty and secured in place. The patient tolerated it without any complication. Eliseo Beavers MD
== END 2018-07-23 17:19 | disposition home or self-care (01) ==
LOC: C.SDS 12:14
PROVIDERS: ATTEND Urology
DX: R33.9 Retention of urine, unspecified (principal); R31.9 Hematuria, unspecified
CPT/HCPCS: 52000; J0696; J0744

== ENCOUNTER 2018-07-28 13:02 | Observation (INO) | payer MEDICAID, OTHER ==
[2018-07-28 13:44] VITALS: BMI 23.4
[2018-07-28] MEDS ORDERED: Propofol 10 mg/ml Inj (20 ML) ONE ×2 (14:14→14:26)
[2018-07-28] MEDS ORDERED: Midazolam 2 MG/2 ML VIAL ONE (14:14)
[2018-07-28] MEDS ORDERED: cefTRIAXone 1 gm 1 GM/100 ML BAG IVPB ONE (14:23)
[2018-07-28] MEDS ORDERED: Lidocaine 2% Jelly (Uro-Jet) ONE (14:23)
[2018-07-28] MEDS ORDERED: Lactated Ringer's 1,000 ML IV ONE (15:13)
[2018-07-28] MEDS ORDERED: HYDROmorphone 0.5 mg/0.5 ml ISec IVP PRN (15:16)
[2018-07-28] MEDS ORDERED: Oxycodone/Acetaminophen 5/325 mg Tab PO PRN (15:16)
[2018-07-28] MEDS ORDERED: Gentamicin 80 mg in 0.9% NS 80 MG/100 ML BAG IVPB ONE (15:31)
[2018-07-28 17:22] VITALS: RESP 20
--- NOTE | 2018-07-29 03:19 | HP ---
HISTORY OF PRESENT ILLNESS: Urology admission is reviewed. This admission is for PVP GreenLight laser TURP. A very pleasant gentleman, he is 63-year-old. He has lot of voiding dysfunction and he is here now because he is here for GreenLight laser TURP. We discussed options and open prostatectomy versus green-light laser. We discussed various workups, testing, etc. See previous notes. He is here today for PVP GreenLight laser. We have made arrangements for the company to be here for the GreenLight laser. We have discussed risks, benefits, and alternatives, specifically discussed the risks and plan that most likely this will cause ejaculatory dysfunction, specifically retrograde ejaculation. We did discuss erectile dysfunction, but that is not the usual consequence. We discussed mostly about the permanence of ejaculation dysfunction. PAST MEDICAL AND SURGICAL HISTORY: As listed on the chart, basically essentially negative. REVIEW OF SYSTEMS: As listed above. MEDICATIONS: See the chart. ALLERGIES: See the chart. PHYSICAL EXAMINATION: GENERAL: Well-nourished male, in no apparent distress. VITAL SIGNS: Within normal limits including the chart. LUNGS: Clear. HEART: Normal S1 and S2. ABDOMEN: Overall soft. Nontender. GENITOURINARY: Normal male phallus without discharge, uncircumcised, foreskin retracts completely. A Costa catheter is in place. RECTAL: Shows a 30 g prostate, soft and smooth. LABORATORY DATA: See chart. PSA noted. DIAGNOSES: Urinary retention, voiding dysfunction, recurrent bouts of failed voiding trials, despite medical therapy. ASSESSMENT AND PLAN: In summary, a very pleasant gentleman who is 63-year-old. We discussed options. He wants a GreenLight laser. We discussed open prostatectomy, discussed further diagnostic studies including the possibility. After all this has been discussed, the plan as follows. We have made arrangements that we are going to do GreenLight laser transurethral resection of prostate and then give a voiding trial. In the future, we need to follow up the patient closely with prostate specific antigen. Possible biopsy. Further plans will follow. Eliseo Beavers MD
--- NOTE | 2018-07-29 03:36 | OP ---
PROCEDURE DATE: 07/28/2018 PREOPERATIVE DIAGNOSES: Urinary retention, voiding dysfunction, hematuria, and prostate specific antigen. POSTOPERATIVE DIAGNOSES: Urinary retention, voiding dysfunction, hematuria, and prostate specific antigen. PROCEDURES: Photovaporization, GreenLight laser energy, and transurethral resection of the prostate. SURGEON: Eliseo Beavers MD COMPLICATIONS: There were no complications. ESTIMATED BLOOD LOSS: About 100 mL. FINDINGS: I want to mention that the bladder neck was bloody. There was a reasonable amount of blood noted before we even began any lasering. After removing the catheter and then inspecting closely, this was particularly at the bladder neck. We tried even coagulating before we started much. This hampered some of the procedure. The remainder of the prostate actually was lasered with good amount of energy and without much blood noted (I do want to mention) at the bladder neck and this made it somewhat difficult, particularly because we never got lost but I did not want to go deep into the bladder neck. I wanted to make sure I stayed far away from the ureteral orifices. Therefore, that limited area is not as wide open as other resections, but we definitely stayed far enough away from the orifices. The remainder of the prostate operation, the patient has a visually occlusive prostate that is about 3 to 4 cm, it opened relatively nicely. At the termination of the procedure, the patient has a reasonably open channel and the verumontanum is grossly intact. INDICATIONS: See history and physical for further details. This is a very pleasant gentleman. We discussed options. He is here for the above procedure. I specifically want to mention that we discussed particularly retrograde ejaculation, ejaculatory dysfunction, and permanence of such. Also, we discussed with the patient that sometimes the procedure does not work well, sometimes there is bleeding. This is all discussed at length. DESCRIPTION OF PROCEDURE: After obtaining informed consent, the patient was placed on the OR table. Routine monitors were placed. Time-out was called that confirmed the patient and positioning. We removed the old Costa catheter and inserted a new one, a 22 scope via the urethra. Under direct vision, I do want to mention that at the bladder neck there was irregular tissue like fragile material, most likely related to the catheter, positioning, etc. Multiple pictures were taken and saved and placed for the record. We now inspected carefully. I cannot really see the bladder and ureteral orifices perfectly well. There was a good amount of bleeding. We kept moving. We started with 80 camejo. We worked along the bladder neck between 5 and 7, worked our way up to 7 and 11 and then 5 to 1. We really did quickly, meticulously, as careful as possible. I tried coagulating at the bladder neck, just gently and carefully. We kept adjusting ourselves and we kept checking where we were up to in terms of the verumontanum. Then, we worked our way around. The rest of this actually opened nicely. Between 5 and 7 along the floor, between 7 and 11, 5 and 1, we worked our way laterally each time in each zone and got good control of hemostasis. The procedure continued. We worked carefully. We inspected now anytime we needed, if there was any bleeding, we coagulated. Now, we used the vapor mode until we got a nice opening. The verumontanum was relatively open, but there was still some blood noted at the bladder neck (see below). At the bladder neck, we were able to nicely see and it was relatively nicely open. I turned off all the water and I did not see any other than the area mentioned above at the bladder neck bleeding (I just want to mention that we put the Costa and put on traction, it stops right away). Otherwise, it looks reasonable. We stopped all the irrigation. We saw no other bleeding other than as mentioned above. Costa catheter was inserted via urethra without difficulty. We were prepared, we were able to use the 22-Cameroonian, it is nicely opened. We put him on traction at about 50 to 60 mL in a mild traction form. The patient was brought to the recovery room in stable condition, having tolerated without complications. Again, I would encourage the patient to stay in the hospital. The urine is relatively clear with the CBI, but we are going to encourage the patient to stay. Eliseo Beavers MD
[2018-07-29 07:38] VITALS: BP 145/90; PULSE 85; TEMP 98.6; O2SAT 97
--- NOTE | 2018-07-29 10:12 | US ---
Renal ultrasound HISTORY: Hydronephrosis. COMPARISON: CT dated 06/26/2018 Technique: Real-time sonography was performed through the kidneys. FINDINGS: Right kidney: 9.9 x 4.8 x 5.1 centimeters. Increased echogenicity of the renal parenchymal cortex suggestive for medical renal disease. No gross calculi or hydronephrosis. Free fluid noted anterior to the right kidney. Atherosclerotic calcification and plaque within the aorta. Left Kidney: 11.2 x 5.4 x 5.7 centimeters. Increased echogenicity of the renal parenchymal cortex suggestive for medical renal disease. Moderate left renal hydronephrosis. Costa catheter is noted within the urinary bladder which is underdistended, limiting evaluation. Impression: 1. Moderate left renal hydronephrosis. 2. Free fluid noted anterior to the right kidney. 3. Increased echogenicity of the bilateral renal parenchymal cortices suggestive for medical renal disease. Clinical correlation. 4. Limited evaluation of the urinary bladder given underdistended state with Costa catheter in the bladder.
== END 2018-07-29 13:14 | disposition home or self-care (01) ==
LOC: C.SDS 13:02 → C.9P 15:34 → C.3T 17:16
PROVIDERS: ADMIT Urology; ATTEND Urology
DX: R31.9 Hematuria, unspecified (principal); R33.9 Retention of urine, unspecified; R30.0 Dysuria
CPT/HCPCS: 52648; 76770; G0378; J0696; J1170; J1580; J7120